=== PATIENT | male | born 1960 | race Two or more races ===

== ENCOUNTER 2025-02-07 06:12 | Inpatient (IN) | payer OTHER, MEDICAID ==
[~2025-02-07] VITALS: Ht 180.3 cm; Wt 67.2 kg
[2025-02-07] VITALS (11 sets, daily range): BP systolic 84–133; BP diastolic 66–114; PULSE 66–98; RESP 12–18; TEMP 97.6–97.8; O2SAT 95–100
[~2025-02-07 06:12] MED LIST: DOCU1CAP46 PO; GLIP5TAB21 PO; LOSA-533 PO; OMEP20TA PO
[2025-02-07] MEDS: ROCURONIUM 10MG/ML 10ML VIAL IV ONE (06:37)
[2025-02-07] MEDS: SUCCINYLCHOLINE CHLORIDE 20 MG/ML 10ML VIAL IV ONE (06:37)
[2025-02-07] MEDS ORDERED: fentaNYL CITRATE 100 MCG/2 ML VL ONE ×2 (06:44→07:21)
[2025-02-07] MEDS ORDERED: ONDANSETRON HCL 4 MG/2 ML VIAL ONE (06:44)
[2025-02-07] MEDS ORDERED: MIDAZOLAM HCL 2MG/2ML 2ml VIAL (1mg/ml) ONE (06:44)
[2025-02-07] MEDS ORDERED: SODIUM CHLORIDE LOCK 10 ML ONE (06:44)
[2025-02-07] MEDS ORDERED: PROPOFOL 10 MG/ML 20 ML IV ONE (06:44)
[2025-02-07] MEDS ORDERED: KETAMINE 50mg/ML 1ml syringe ONE (06:44)
[2025-02-07] MEDS ORDERED: LIDOCAINE 1% INJ PF 5ML AMP ONE (06:44)
[2025-02-07] MEDS: BUPIVACAINE 0.5% P/F INJ 10 ML VIAL ONE (07:07)
[2025-02-07] MEDS: ceFAZolin 2 GM/D5W50ml 50 ML IV ONE (07:50)
[2025-02-07] MEDS: VANCOMYCIN HCL 1000 MG VL ONE (08:23)
[2025-02-07] MEDS: BUPIVACAINE HCL 0.25% P/F 10 ML VIAL ONE (08:37)
[2025-02-07] MEDS: LIDOCAINE 1% HCL (LOCAL ANESTH.) INJ 20ML MDV ONE (08:38)
[2025-02-07] MEDS ORDERED: MORPHINE SULFATE 4 MG/ML SYR/VIAL IV PRN (09:00)
[2025-02-07] MEDS ORDERED: HYDROmorphone HCL 2 MG/ML VL/or syr IV PRN ×2 (09:00)
[2025-02-07] MEDS ORDERED: METOCLOPRAMIDE HCL 5MG/ml INJ 2ml VIAL IV PRN (09:00)
[2025-02-07] MEDS: ACCU-CHEK COMFORT CURVE STRIP VI ONE (09:00)
[2025-02-07] MEDS ORDERED: MORPHINE SULFATE INJ 2 MG/ml SYRG IV PRN ×2 (09:00→14:15)
--- NOTE | 2025-02-07 09:07 | DVHOP2 ---
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 These include but are not limited to complications of anesthesia, postoperative infection, incomplete relief of symptoms, recurrence of symptoms, damage to bl ood vessels, nerves and tendons, deep venous thrombosis, pulmonary embolism and possible need for repeat surgery in the future. Estimated Blood Loss: 200 mL Indications for Surgery: Right hand 4th 5th metatarsal osteomyelitis Name of Procedure Performed Right transmetatarsal amputation Procedure Details Procedure Details: Patient was identified in the preop hold area he was consented and preopped by myself he was brought back to the operating room placed the operating table in supine position. After adequate induction of anesthesia antibiotics and time- out. The right foot was prepped and draped in normal surgical fashion a standard transmetatarsal end incision was made Bovie cauterization was used to dissect down through each intermetatarsal space adequate bleeding was noted throughout each digital vessel was ligated. The attention was then placed through the posterior flap were this was done just proximal to the metatarsophalangeal joint. Again the tissue there was very healthy all the bones were circumferentially controlled. The 4th and 5th metatarsal bones were necrotic they were excised completely. The 1st through 3rd metatarsal bones were transected at the level of the mid foot. Once this was done the specimen was sent off for pathology. The wound was then irrigated out all bleeding was controlled vancomycin powder was then placed at the level of the transection and flap. The flap was then closed with a deep layer of 2-0 Vicryl sutures followed by a dermal layer of 2-0 Vicryl sutures followed by skin closure with jayne. A multilayer compression wrap dressing with ABDs Kerlix and Vinny wrap was then applied. Patient was taken to PACU in stable condition. Family was made aware of all findings. Condition Stable Disposition Still a Patient JUAN J BAEZ Jr., MD Feb 07, 2025 09:07
--- NOTE | 2025-02-07 14:09 | DVHHP2 ---
Review of Systems Allergies: Coded Allergies: NO KNOWN ALLERGIES (Unverified , 02/07/25) Medications Current Medications Medications Dose Ordered Sig/No Route Start Time Stop Time Status Last Admin Dose Admin Acetaminophen 650 mg Q6HP PRN PO 02/07/25 14:15 UNV Acetaminophen/ Hydrocodone Bitart 1 tab Q6HPRN PRN PO 02/07/25 14:15 UNV Morphine Sulfate 2 mg Q4HPRN PRN IV 02/07/25 14:15 UNV Exam Vital Signs Vital Signs Date Time Temp Pulse Resp B/P (MAP) Pulse Ox O2 Delivery O2 Flow Rate FiO2 02/07/25 13:38 80 16 127/73 (91) 98 02/07/25 09:20 Room Air 02/07/25 08:53 9.0 02/07/25 08:53 98.1 98.1 Labs/Xrays Labs Test 02/07/25 09:06 Range/Units POC Glucose 137 H 70-106 mg/dl SEPSIS Sepsis Screen Physician Orders Oxygen By Face Mask (02/07/25 08:59) Sustainability Director (02/07/25 08:59) Notify Anesth. For Changes: (02/07/25 08:59) Pulse Ox Assessment (02/07/25 08:59) Bear Hugger For Temp <94.5f (02/07/25 08:59) May Have Head Of Bed Up (02/07/25 08:59) Follow Iv With Surgeon Orders (02/07/25 08:59) Discharge To Room Per Criteria (02/07/25 08:59) Consistent Carb([facility])Diabetes (02/07/25 Dinner) Admit (02/07/25 14:04) Complete Blood Count (02/08/25 06:00) Comprehensive Metabolic Panel (02/08/25 06:00) Acetaminophen Tablet (Tylenol Tablet) (02/07/25 14:15) Hydrocodone-Acet 5/325mg Tab ([place] 5/32 (02/07/25 14:15) Morphine Sulfate Injection (02/07/25 14:15) Ondansetron Hcl (Zofran) (02/07/25 14:15) Glucose Blood (Accu-Chek Comfort Curve T (02/07/25 17:00) Mild Sliding Scale (02/07/25 17:00) Dextrose 50% Syringe (02/07/25 14:15) Hemoglobin A1c (02/08/25 06:00) Vital Signs Date Time Temp Pulse Resp B/P (MAP) Pulse Ox O2 Delivery O2 Flow Rate FiO2 02/07/25 13:38 80 16 127/73 (91) 98 02/07/25 12:38 79 14 110/66 (81) 98 02/07/25 11:38 75 12 107/66 (80) 97 02/07/25 10:38 73 14 128/70 (89) 97 02/07/25 10:08 76 18 121/75 (90) 97 02/07/25 09:38 81 11 115/74 (88) 98 02/07/25 09:23 75 14 127/67 (87) 98 02/07/25 09:20 Room Air 02/07/25 09:08 77 14 136/78 (97) 98 02/07/25 09:03 74 13 135/79 (97) 100 02/07/25 08:58 68 14 159/87 (111) 100 02/07/25 08:53 Mask 9.0 02/07/25 08:53 70 15 100 Mask 9.0 02/07/25 08:53 98.1 70 15 157/83 (107) 100 98.1 02/07/25 06:22 97.2 78 16 124/75 (91) 97 97.2 Medications Medications Dose Ordered Sig/No Route Start Time Stop Time Status Last Admin Dose Admin Bupivacaine HCl 20 ml STK-MED ONCE .ROUTE 02/07/25 06:58 02/07/25 06:55 DC 02/07/25 08:37 20 ML Cefazolin Sodium/ Dextrose 50 ml @ ud STK-MED ONCE IV 02/07/25 06:41 02/07/25 06:37 DC 02/07/25 07:50 Diagnostic Test (Pha) 1 strip ONCE ONCE 02/07/25 09:00 02/07/25 09:11 DC 02/07/25 09:00 1 STRIP Lidocaine HCl 20 ml STK-MED ONCE .ROUTE 02/07/25 06:59 02/07/25 06:56 DC 02/07/25 08:38 20 ML Assessment/Plan Assessment/Plan see dictated note Plan discussed with: Patient My Orders Orders - MARCELINO RIVAS MD Procedure Category Date Status Time Consistent DIET 02/07/25 Transmitted Carb(Ccho)Diabetes Dinner Admit ADMIT 02/07/25 Transmitted 14:04 Complete Blood Count LAB 02/08/25 Verified 06:00 Comprehensive LAB 02/08/25 Verified Metabolic Panel 06:00 Acetaminophen Tablet PHA 02/07/25 Transmitted (Tylenol Tablet) 14:15 Hydrocodone-Acet PHA 02/07/25 Transmitted 5/325mg Tab ([place] 14:15 Morphine Sulfate PHA 02/07/25 Transmitted Injection 14:15 Ondansetron Hcl PHA 02/07/25 Transmitted (Zofran) 14:15 Glucose Blood PHA 02/07/25 Transmitted (Accu-Chek Comfort 17:00 Mild Sliding Scale PHA 02/07/25 Transmitted 17:00 Dextrose 50% Syringe PHA 02/07/25 Transmitted 14:15 Hemoglobin A1c LAB 02/08/25 Verified 06:00 Date of Service: Feb 07, 2025 Billing Provider: MARCELINO RIVAS MD Common Visit Codes: [id number] INP/OBS CARE (HIGH) Secondary Visit Codes: [id number] CARE PLAN 30 MINUTES MARCELINO RIVAS MD Feb 07, 2025 14:09
[2025-02-07] MEDS ORDERED: DEXTROSE (50%) 50ML SYRG IV PRN (14:15)
[2025-02-07] MEDS ORDERED: ACETAMINOPHEN 325 MG TAB PO PRN (14:15)
[2025-02-07] MEDS ORDERED: HYDROcodone-ACET 5/325MG TAB PO PRN (14:15)
[2025-02-07] MEDS ORDERED: ONDANSETRON HCL 4 MG/2 ML VIAL IV PRN (14:15)
--- NOTE | 2025-02-07 14:21 | DVHHP ---
ADMIT DATE: 02/07/2025 HISTORY OF PRESENT ILLNESS: The patient is a 64-year-old gentleman who was admitted after he underwent surgery on the right foot for right fourth and fifth toe metatarsal osteomyelitis. The patient at this time denies any significant pain. No chest pain. No shortness of breath. No nausea or vomiting. REVIEW OF SYSTEMS: Review of rest systems otherwise currently negative. PAST MEDICAL HISTORY: Significant for diabetes and hypertension. MEDICATIONS: He takes glipizide, losartan, and omeprazole. ALLERGIES: No known drug allergies. SOCIAL HISTORY: Denies smoking or alcohol. Lives at home with family. FAMILY HISTORY: Negative. PHYSICAL EXAMINATION: GENERAL: The patient is awake and alert. VITAL SIGNS: Temperature of 98.1, pulse of 76 per minute, blood pressure 121/75. SHEENT: Unremarkable. There is no JVD. No pedal edema. LUNGS: Equal bilaterally. No added sounds. CARDIOVASCULAR: S1 and S2 is regular without murmurs. ABDOMEN: Soft. There is no organomegaly. NEUROLOGICAL: Nonfocal. MUSCULOSKELETAL: Right foot is currently in a dressing. ASSESSMENT AND PLAN: * Diabetes mellitus for which the patient will be placed on sliding-scale insulin. * Hypertension for which his blood pressure will be monitored. * Status post right fourth toe amputation for osteomyelitis. The patient will be placed on pain medications and followed up by Dr. Baez. ADVANCE CARE PLANNING: The patient is a full code-TIME SPENT: 18 minutes. MD AFSHAN Monte/DELL TID: [id number] RECEIPT: [id number] [facility]
[2025-02-07] MEDS: ACCU-CHEK COMFORT CURVE STRIP VI SCH (17:00)
[2025-02-07] MEDS: InsuLIN REG 1unit/0.01ml Soln (100units/ml) SC SCH (17:00)
[2025-02-08] VITALS (16 sets, daily range): BP systolic 114–143; BP diastolic 60–82; PULSE 66–99; RESP 16–18; TEMP 97.7–98.1; O2SAT 95–98
[2025-02-08] MEDS: PANTOPRAZOLE 40 MG TAB PO SCH (06:00)
[2025-02-08 06:08] LABS: Hemoglobin 13.4 g/dL (13.5-17.5); Mean Corpuscular Volume 97.7 fL (80.0-100.0); Nucleated Red Blood Cells % 0.1 %
[2025-02-08 06:11] LABS: Hematocrit 38.0 % (41.0-53.0); Mean Corpuscular Hemoglobin 34.5 pg (28.0-32.0)
[2025-02-08 06:34] LABS: Alanine Aminotransferase 15 U/L (7-40); Albumin 3.9 g/dL (3.2-4.8); Alkaline Phosphatase 50 U/L (46-116); Anion Gap 9 (5-15); BUN/Creatinine Ratio 11.8 (10.0-20.0); Calcium 9.2 mg/dL (8.7-10.4); Carbon Dioxide 28 mmol/L (20-31); Chloride 102 mmol/L (98-107); Potassium 3.7 mmol/L (3.5-5.1); Sodium 139 mmol/L (136-145); Total Protein 6.5 g/dL (5.7-8.2)
[2025-02-08 06:35] LABS: Bilirubin, Total 0.9 mg/dL (0.2-1.0); Blood Urea Nitrogen 6 mg/dL (9-23); Glucose 110 mg/dL (74-106)
[2025-02-08 07:26] LABS: Urine Protein, UAD Negative (Negative)
--- NOTE | 2025-02-08 11:08 | DVHDS2 ---
Discharge Summary Date of Admission Feb 07, 2025 at 14:04 Date of Discharge: Feb 08, 2025 Labs/Diagnostic Data: Laboratory Results Test 02/08/25 05:31 02/07/25 22:00 02/07/25 17:26 White Blood Count 7.4 10^3/uL (4.4-10.8) Red Blood Count 3.89 10^6/uL (4.5-5.90) Hemoglobin 13.4 g/dL (13.5-17.5) Hematocrit 38.0 % (41.0-53.0) Mean Corpuscular Volume 97.7 fL (80.0-100.0) Mean Corpuscular Hemoglobin 34.5 pg (28.0-32.0) Mean Corpuscular Hemoglobin Concent 35.3 g/dL (32.0-36.0) Red Cell Distribution Width 14.1 % (11.8-14.3) Platelet Count 230 10^3/uL (140-450) Mean Platelet Volume 6.5 fL (6.9-10.8) Neutrophils (%) (Auto) 64.7 % (37.0-80.0) Lymphocytes (%) (Auto) 25.3 % (10.0-50.0) Monocytes (%) (Auto) 8.3 % (0.0-12.0) Eosinophils (%) (Auto) 1.4 % (0.0-7.0) Basophils (%) (Auto) 0.3 % (0.0-2.0) Neutrophils # (Auto) 4.8 10 ^3/uL (1.6-8.6) Lymphocytes # (Auto) 1.9 10 ^3/uL (0.4-5.4) Monocytes # (Auto) 0.6 10 ^3/uL (0-1.3) Eosinophils # (Auto) 0.1 10 ^3/uL (0-0.8) Basophils # (Auto) 0 10 ^3/uL (0-0.2) Nucleated Red Blood Cells 0.1 % Sodium Level 139 mmol/L (136-145) Potassium Level 3.7 mmol/L (3.5-5.1) Chloride Level 102 mmol/L (98-107) Carbon Dioxide Level 28 mmol/L (20-31) Anion Gap 9 (5-15) Blood Urea Nitrogen 6 mg/dL (9-23) Creatinine 0.51 mg/dL (0.700-1.30) Glomerular Filtration Rate Calc 113 mL/min (>90) BUN/Creatinine Ratio 11.8 (10.0-20.0) Serum Glucose 110 mg/dL (74-106) Hemoglobin A1c 5.8 % A1C (<5.7) Calcium Level 9.2 mg/dL (8.7-10.4) Total Bilirubin 0.9 mg/dL (0.2-1.0) Aspartate Amino Transferase (AST) 16 U/L (13-40) Alanine Aminotransferase (ALT) 15 U/L (7-40) Alkaline Phosphatase 50 U/L (46-116) Total Protein 6.5 g/dL (5.7-8.2) Albumin 3.9 g/dL (3.2-4.8) Urine Color Light-yellow (Yellow) Urine Clarity Clear (Clear) Urine pH 6.0 (5.0-9.0) Urine Specific [place] 1.010 (1.001-1.035) Urine Protein Negative (Negative) Urine Ketones 1+ (Negative) Urine Blood Negative /uL (Negative) Urine Nitrite Negative (Negative) Urine Bilirubin Negative (Negative) Urine Urobilinogen Normal mg/dL (Negative) Urine Leukocyte Esterase Negative /uL (Negative) Urine RBC 1 /hpf (0 - 3) Urine Microscopic WBC 1 /HPF (0-3) Urine Squamous Epithelial Cells None seen /hpf (<5) Urine Bacteria None seen /hpf (None Seen) Urine Mucus Few (None Seen) Urine Glucose Normal mg/dL (Normal) POC Glucose 104 mg/dl (70-106) Other Laboratory Tests 02/08/25 05:31 Brief Hx & Hospital Course: see dictated note Condition at Discharge: Fair Final Diagnosis/Problems List right foot surgery Discharge Disposition: Home Discharge Instruct/Medications Diet: Consistent carbohydrate, Cardiac 2g Na,low cholest Activity: No Restrictions, As Tolerated Follow Up/Referral: fu with pcp/podiatry Medications: resume home meds script to pharmacy Scheduled Docusate Sodium (Docqlace), 100 MG PO DAILY, (Reported) Glipizide (Glipizide), 5 MG PO DAILY, (Reported) Losartan Potassium (Losartan Potassium), 25 MG PO PRN, (Reported) Omeprazole (Gnp Omeprazole), 20 MG PO DAILY, (Reported) Discharge Statement: "Patient was advised to return to the ER or call 911 if any headaches, dizziness, shortness of breath, chest pain, abdominal pain, bleeding, fevers, or worsening of medical condition. Patient was counseled about treatment plan, medications, possible side effects, patientverbalized understanding. All questions were answered to the best of my ability. This discharge took greater then 30 minutes in planning, reviewing documentation, counseling the patient, and discussing with other team members." ASSESSMENT ASSESSMENT Assessment right foot surgery Date of Service: Feb 08, 2025 Billing Provider: MARCELINO RIVAS MD Common Visit Codes: 36977-UZD/OBS DISCH DAY >30min MARCELINO RIVAS MD Feb 08, 2025 11:08
[2025-02-08] MEDS ORDERED: HYDR1TAB97 PO (11:09)
[2025-02-08] MEDS ORDERED: AMOX500T86 PO (11:09)
--- NOTE | 2025-02-08 11:20 | DVHDS ---
DATE OF DISCHARGE: 02/08/2025 HISTORY OF PRESENT ILLNESS: The patient is a 64-year-old gentleman who was admitted after he underwent right fourth and fifth toe amputation for osteomyelitis. He has history of diabetes and hypertension. HOSPITAL COURSE: The patient did well postoperatively. Hemoglobin has been stable. The patient's A1c was 5.8. He will now be discharged home to be on Augmentin 500 b.i.d. for 10 days along with [facility] p.r.n. for pain. He will follow up with his primary and with Dr. Baez. FINAL DIAGNOSES: * Diabetes mellitus. * Hypertension. * Status post right fourth and fifth toe amputation for osteomyelitis. Time spent in discharge planning and review of plan with the patient and family nursing was 37 minutes. MD AFSHAN Monte/SIERRA TID: [id number] RECEIPT: [id number]
== END 2025-02-08 17:45 | disposition home or self-care (01) | DRG 617 ==
LOC: SUR 06:12 → OVERFLOW 14:04 → WEST WING 15:15
PROVIDERS: ADMIT Internal Medicine; ATTEND Internal Medicine
PROC: 0Y6M0Z7 Detachment at Right Foot, Complete 4th Ray, Open Approach (ICD-10-PCS; 2025-02-07)
PROC: 0Y6M0Z9 Detachment at Right Foot, Partial 1st Ray, Open Approach (ICD-10-PCS; 2025-02-07)
PROC: 0Y6M0ZB Detachment at Right Foot, Partial 2nd Ray, Open Approach (ICD-10-PCS; 2025-02-07)
PROC: 0Y6M0ZC Detachment at Right Foot, Partial 3rd Ray, Open Approach (ICD-10-PCS; 2025-02-07)
PROC: 0Y6M0Z8 Detachment at Right Foot, Complete 5th Ray, Open Approach (ICD-10-PCS; principal; 2025-02-07 07:28)
DX: E11.69 Type 2 diabetes mellitus with other specified complication (principal); M86.8X7 Other osteomyelitis, ankle and foot; I10 Essential (primary) hypertension; Z79.899 Other long term (current) drug therapy
CPT/HCPCS: 36415; 80053; 81001; 82962; 83036; 85025; G0378; J0330; J1815; J2003; J2250; J2405; J2704; J3490

== ENCOUNTER 2025-04-16 17:47 | Inpatient (IN) | payer MEDICARE, MEDICAID ==
[~2025-04-16] VITALS: Ht 180.3 cm; Wt 59.8 kg
[~2025-04-16 17:47] MED LIST changes: +AMOX500T86 PO; +HYDR1TAB97 PO; +METF-370 PO
--- NOTE | 2025-04-16 18:16 | ECG ---
[facility] Test Date: 2025-04-16 Test Time: 18:00:14 Pat Name: JANE FLORES Department: Room: 0276 Gender: M Customer Data Technician: ZENA : 1960 Requested By: MIKAL DESOUZA Order Number: [id number] Reading MD: Jessee Fontanez Measurements Intervals Walker Rate: 80 P: 3 TN: 142 QRS: 26 QRSD: 93 T: -26 QT: 397 QTc: 458 Interpretive Statements Sinus rhythm Low voltage, extremity leads Electronically Signed On 04-19-2025 13:32:00 PST by Jessee Fontanez Please click the below link to view image of tracing.
[2025-04-16] MEDS: ONDANSETRON HCL 4 MG/2 ML VIAL IV ONE (18:45)
[2025-04-16] MEDS: MORPHINE SULFATE 4 MG/ML SYR/VIAL IV ONE (18:45)
[2025-04-16 19:14] LABS: Hematocrit 44.5 % (41.0-53.0); Hemoglobin 15.6 g/dL (13.5-17.5); Mean Corpuscular Hemoglobin 35.3 pg (28.0-32.0); Mean Corpuscular Volume 100.7 fL (80.0-100.0); Nucleated Red Blood Cells % 0.2 %
[2025-04-16 19:26] LABS: Alanine Aminotransferase 20 U/L (7-40); Albumin 4.1 g/dL (3.2-4.8); Alkaline Phosphatase 66 U/L (46-116); Anion Gap 8 (5-15); BUN/Creatinine Ratio 27.6 (10.0-20.0); Blood Urea Nitrogen 16 mg/dL (9-23); Calcium 9.7 mg/dL (8.7-10.4); Carbon Dioxide 31 mmol/L (20-31); Chloride 104 mmol/L (98-107); Lipase 27 U/L (12-53); Potassium 3.6 mmol/L (3.5-5.1); Sodium 143 mmol/L (136-145); Total Protein 7.3 g/dL (5.7-8.2)
[2025-04-16 19:27] LABS: Bilirubin, Total 1.0 mg/dL (0.2-1.0); Glucose 132 mg/dL (74-106)
--- NOTE | 2025-04-16 19:27 | ED.PDOC ---
GI ASSESSMENT HPI Comments 64-year-old male who came to ER for abdominal pain. Patient has history of hypertension and diabetes. The past few days patient has been having diffuse abdominal pain, associated with loss of appetite. Generalized weakness. Chief Complaint: Abdominal Pain Time Seen by MD: 19:26 Reviewed Notes: Nurses Notes Allergies: Coded Allergies: NO KNOWN ALLERGIES (Unverified , 02/07/25) Home Meds Active Scripts Hydrocodone-Acetaminophen (Hydrocodone/Acetaminophen 5-325 mg) 1 Tab Tab, 1 TAB PO TIDP PRN for 6 Days, #18 TAB Prov:MARCELINO RIVAS MD 02/08/25 Amoxicillin & Pot Clavulanate (Augmentin) 500 Mg Tab, 1 TAB PO BID for 10 Days, #20 TAB Prov:MARCELINO RIVAS MD 02/08/25 Reported Medications Glipizide (Glipizide) 5 Mg Tab, 5 MG PO DAILY, TAB 02/04/25 Omeprazole (Gnp Omeprazole) 20 Mg Tab, 20 MG PO DAILY, TAB 02/04/25 Losartan Potassium (Losartan Potassium) 25 Mg Tab, 25 MG PO PRN, TAB 02/04/25 Docusate Sodium (DOCQLACE) 100 Mg Cap, 100 MG PO DAILY, CAP 02/04/25 Information Source: Patient, Spouse Mode of Arrival: Wheelchair Timing: Days Duration: Since onset Past Medical History PAST MEDICAL HISTORY: DM, HTN Surgical History (Other): toe amputation Family History Family History: Reviewed,noncontributory to illness Social History Smoker: Non-Smoker Alcohol: Denies ETOH Use Drugs: Denies Drug Use Lives In: Home Constitutional: denies: chills, diaphoresis, fatigue, fever, malaise, sweats, weakness, others EENTM: denies: blurred vision, double vision, ear bleeding, ear discharge, ear drainage, ear pain, ear ringing, eye pain, eye redness, hearing loss, mouth pain, mouth swelling, nasal discharge, nose bleeding, nose congestion, nose pain, photophobia, tearing, throat pain, throat swelling, voice changes, others Respiratory: denies: cough, hemoptysis, orthopnea, SOB at rest, shortness of breath, SOB with excertion, stridor, wheezing, others Cardiovascular: denies: chest pain, dizzy spells, diaphoresis, Dyspnea on exertion, edema, irregular heart beat, left arm pain, lightheadedness, palpitations, PND, syncope, others Gastrointestinal: reports: abdominal pain, poor appetite; denies: abdomen distended, blood streaked bowels, constipated, diarrhea, dysphagia, difficulty swallowing, hematemesis, melena, nausea, poor fluid intake, rectal bleeding, rectal pain, vomiting, others Genitourinary: denies: burning, dysuria, flank pain, frequency, hematuria, incontinence, penile discharge, penile sore, pain, testicle pain, testicle sw elling, urgency, others Neurological: denies: dizziness, fainting, headache, left sided numbness, left sided weakness, numbness, paresthesia, pre-existing deficit, right sided numbness, right sided weakness, seizure, speech problems, tingling, tremors, weakness, others Musculoskeletal: denies: back pain, gout, joint pain, joint swelling, muscle pain, muscle stiffness, neck pain, others Integumetry: denies: bruises, change in color, change in hair/nails, dryness, laceration, lesions, lumps, rash, wounds, others Allergic/Immunocompromised: denies: Difficulty Healing, Frequent Infections, Hives, Itching, others Hematologic/Lymphatic: denies: anemia, blood clots, easy bleeding, easy bruising, swollen glands, others Endocrine: denies: excessive hunger, excessive sweating, excessive thirst, excessive urination, flushing, intolerance to cold, intolerance to heat, unexplained weight gain, unexplained weight loss, others Psychiatric: denies: anxiety, bipolar disorder, depression, hopeless, panic disorder, schizophrenia, sleepless, suicidal, others Physical Exam General Appearance: No Apparent Distress, Normal HEENT: Normal ENT Inspection, Pharynx Normal, TMs Normal Neck: Full Range of Motion, Non-Tender, Normal, Normal Inspection Respiratory: Chest Non-Tender, Lungs Clear, No Accessory Muscle Use, No Respiratory Distress, Normal Breath Sounds Cardiovascular: No Edema, No JVD, No Murmur, No Gallop, Normal Peripheral Pulses, Regular Rate/Rhythm Breast Exam: Deferred Gastrointestinal: No Organomegaly, Non Tender, No Pulsatile Mass, Normal Bowel Sounds, Soft Genitalia: Deferred Pelvic: Deferred Rectal: Deferred Extremities: No calf tenderness, Normal capillary refill, Normal inspection, Normal range of motion, Non-tender, No pedal edema Musculoskeletal : Apperance: Normal Neurologic: Alert, coffee roaster II-XII nml as Tested, No Motor Deficits, Normal Affect, Normal Mood, No Sensory Deficits Cerebellar Function: Normal Reflexes: Normal Skin: Dry, Normal Color, Warm Lymphatic: No Adenopathy Was a procedure done? Was a procedure done?: No GI differential Dx Differential Diagnosis: Diverticular disease, Gastritis/PUD, Gastroenteritis, Pancreatitis, Dehydration, Diabetes/ DKA X-Ray, Labs, Meds, VS Vital Signs Date Time Temp Pulse Resp B/P (MAP) Pulse Ox O2 Delivery O2 Flow Rate FiO2 04/16/25 21:16 83 18 100 Room Air* 0 21 04/16/25 20:53 83 18 137/72 (93) 99 04/16/25 18:45 83 18 137/72 04/16/25 18:00 80 04/16/25 17:50 97.5 91 18 119/81 96 97.5 Lab Test 04/16/25 18:57 Range/Units White Blood Count 7.3 4.4-10.8 10^3/uL Red Blood Count 4.41 L 4.5-5.90 10^6/uL Hemoglobin 15.6 13.5-17.5 g/dL Hematocrit 44.5 41.0-53.0 % Mean Corpuscular Volume 100.7 H 80.0-100.0 fL Mean Corpuscular Hemoglobin 35.3 H 28.0-32.0 pg Mean Corpuscular Hemoglobin Concent 35.0 32.0-36.0 g/dL Red Cell Distribution Width 13.3 11.8-14.3 % Platelet Count 310 140-450 10^3/uL Mean Platelet Volume 6.8 L 6.9-10.8 fL Neutrophils (%) (Auto) 62.2 37.0-80.0 % Lymphocytes (%) (Auto) 29.6 10.0-50.0 % Monocytes (%) (Auto) 6.4 0.0-12.0 % Eosinophils (%) (Auto) 1.3 0.0-7.0 % Basophils (%) (Auto) 0.5 0.0-2.0 % Neutrophils # (Auto) 4.5 1.6-8.6 10 ^3/uL Lymphocytes # (Auto) 2.2 0.4-5.4 10 ^3/uL Monocytes # (Auto) 0.5 0-1.3 10 ^3/uL Eosinophils # (Auto) 0.1 0-0.8 10 ^3/uL Basophils # (Auto) 0 0-0.2 10 ^3/uL Nucleated Red Blood Cells 0.2 % Sodium Level 143 136-145 mmol/L Potassium Level 3.6 3.5-5.1 mmol/L Chloride Level 104 98-107 mmol/L Carbon Dioxide Level 31 20-31 mmol/L Anion Gap 8 5-15 Blood Urea Nitrogen 16 9-23 mg/dL Creatinine 0.58 L 0.700-1.30 mg/dL Glomerular Filtration Rate Calc 108 >90 mL/min BUN/Creatinine Ratio 27.6 H 10.0-20.0 Serum Glucose 132 H 74-106 mg/dL Calcium Level 9.7 8.7-10.4 mg/dL Total Bilirubin 1.0 0.2-1.0 mg/dL Aspartate Amino Transferase (AST) 24 13-40 U/L Alanine Aminotransferase (ALT) 20 7-40 U/L Alkaline Phosphatase 66 46-116 U/L Total Protein 7.3 5.7-8.2 g/dL Albumin 4.1 3.2-4.8 g/dL Lipase 27 12-53 U/L Current Medications Medications (Trade) Dose Ordered Sig/No Route Start Time Stop Time Status Last Admin Ondansetron HCl (Zofran) 4 mg ONCE ONCE IV 04/16/25 18:45 04/16/25 18:46 DC 04/16/25 18:45 Sodium Chloride 1,000 ml @ 1,000 mls/hr Q1H ONCE IVB 04/16/25 18:45 04/16/25 19:44 DC 04/16/25 20:03 Morphine Sulfate 4 mg ONCE ONCE IV 04/16/25 18:45 04/16/25 18:46 DC 04/16/25 18:45 Time of 1ST Reevaluation: 19:25 Reevaluation 1ST: Unchanged Patient Education/Counseling: Diagnosis, Treatment Family Education/Counseling: Diagnosis, Treatment SEPSIS Sepsis Screen Date sepsis recognized/suspect: Apr 16, 2025 Time Sepsis recognized/suspect: 1751 Recent Procedure: No On Antibiotic Therapy: No Respiratory Rate >20: No Heart Rate >90: Yes Temp<36 C (96.8 F) or >38.3 C: No SBP <90 or MAP <65 mmHG: No New Acute Mental Status Change: No Is the patient on CPAP, BIPAP,: No Physician Orders Urinalysis (04/16/25 18:40) Ct Ab Pel With Iv Con Only (04/16/25 18:40) Vital Signs Date Time Temp Pulse Resp B/P (MAP) Pulse Ox O2 Delivery O2 Flow Rate FiO2 04/16/25 21:16 83 18 100 Room Air* 0 21 04/16/25 20:53 83 18 137/72 (93) 99 04/16/25 18:45 83 18 137/72 04/16/25 18:00 80 04/16/25 17:50 97.5 91 18 119/81 96 97.5 Laboratory Tests Test 04/16/25 18:57 White Blood Count 7.3 10^3/uL (4.4-10.8) Medications Medications Dose Ordered Sig/No Route Start Time Stop Time Status Last Admin Dose Admin Morphine Sulfate 4 mg ONCE ONCE IV 04/16/25 18:45 04/16/25 18:46 DC 04/16/25 18:45 Ondansetron HCl 4 mg ONCE ONCE IV 04/16/25 18:45 04/16/25 18:46 DC 04/16/25 18:45 Sodium Chloride 1,000 ml @ 1,000 mls/hr Q1H ONCE IVB 04/16/25 18:45 04/16/25 19:44 DC 04/16/25 20:03 Departure 1 Departure Time of Disposition: 23:11 Impression: Primary Impression: Intractable abdominal pain Additional Impression: Stercoral colitis Disposition: ADMITTED INPATIENT Admit to: Med Surg Condition: Guarded Comments 64-year-old male with lower abdominal pain. Lab and CT findings reviewed. CT scan is a little bit worrisome for possible stercoral colitis. Patient's still has pain on re-evaluation. Patient will need to be admitted for supportive care and further workup. Critical Care Note Critical Care Time?: Yes (35 min-critical care time only) Critical care comment: Total critical care time: Approximately 36 minutes Due to a high probability of clinically significant, life threatening deterioration, the patient required my highest level of preparedness to intervene emergently and I personally spent this critical care time directly and personally managing the patient. This critical care time included obtaining a history; examining the patient; pulse oximetry; ordering and review of studies; arranging urgent treatment with development of a management plan; evaluation of patient's response to treatment; frequent reassessment; and, discussions with other providers. This critical care time was performed to assess and manage the high probability of imminent, life-threatening deterioration that could result in multi-organ failure. It was exclusive of separately billable procedures and treating other patients. Stability Stability form required: No Heart Score Heart Score: Heart Score Response (Comments) Value History N/A 0 EKG N/A 0 Age N/A 0 Risk Factors N/A 0 Troponin N/A 0 Total 0 I personally scribed for MIKAL DESOUZA MD ([email or web address]) on 04/16/25 at 19:27. Electronically submitted by Indio Caldwell ([email or web address]). MIKAL DESOUZA MD Apr 16, 2025 19:27
[2025-04-16] MEDS: IOHEXOL 300 MG/ML 100ML BOTTLE IJ ONE (19:51)
[2025-04-16] MEDS: SODIUM CHLORIDE 0.9% 1,000 ML IVB ONE (20:03)
[2025-04-16 21:16] VITALS: PULSE 83; RESP 18; O2SAT 100
--- NOTE | 2025-04-16 21:36 | DVH ---
Exam: CT CT AB PEL WITH IV CON ONLY History: abd pain Comparison Study: None TECHNIQUE: Multidetector CT of the abdomen and pelvis with IV contrast. Axial, coronal and sagittal m ultiplanar reformats were obtained from the axial data set by the technologist. Radiation Dose Information: CT Dose: CTDI volume is 6.98 mGy. Dose-length product is 367.98 mGy*cm FINDINGS: Bibasilar atelectasis. Partially visualized heart is normal in size. Trace pericardial effusion. 0.8 cm hypodense right hepatic lobe lesion that is too small to characterize. Otherwise, liver, sple en and adrenal glands unremarkable. Gallbladder is moderately distended and demonstrates mild wall th ickening. Otherwise, unremarkable. 1.8 x 1.6 cm soft tissue density lesion adjacent to/of the pancreatic tail. Kidneys, ureters,and mildly distended urinary bladder are unremarkable. Prostate measures 3.3 x 5 cm . Mild gastric wall thickening. Mild wall Thickening of proximal small bowel loops. The remainder of t he small bowel loops unremarkable. Appendix is not definitely visualized. Without visualization of t he appendix, can not exclude acute appendicitis. Moderate to large amount of fecal material within the colon with rectal fecal impaction measuring up to 7.4 x 7.2 cm. Segmental wall thickening of the ascending colon which may be from inadequate disten tion. Distal rectal wall thickening with mesorectal fat stranding. No evidence of intraperitoneal free air or free fluid. Mild mesenteric edema. No evidence of aortic aneurysm or dissection. Mild atherosclerotic calcification of the aorta and bi lateral iliacs. No significant lymphadenopathy. Mild body wall edema. No evidence of acute osseous abnormalities. Mild chronic appearing loss of supe rior vertebral body height of L3. IMPRESSION: Mild gastroenteritis. Moderate to large amount of fecal material within the colon with rectal fecal impaction and stercoral proctitis. Segmental wall thickening over the ascending colon which may be from inadequate distention with mild Colitis not excluded. Mild nonspecific wall thickening of the gallbladder. No CT evidence of cholelithiasis acute cholecyst itis. Right upper quadrant ultrasound may be considered for further evaluation. Enlarged prostate. Recommend correlation with PSA. Mild body wall edema.
[2025-04-17] VITALS (9 sets, daily range): BP systolic 118–136; BP diastolic 75–84; PULSE 65–86; RESP 17–19; TEMP 97.1–98.2; O2SAT 94–99
[2025-04-17] MEDS ORDERED: NITROGLYCERIN 0.4 MG SL TAB SL PRN (01:00)
[2025-04-17] MEDS ORDERED: MORPHINE SULFATE INJ 2 MG/ml SYRG IV PRN ×2 (01:00)
[2025-04-17] MEDS ORDERED: ONDANSETRON HCL 4 MG/2 ML VIAL IV PRN (01:00)
[2025-04-17] MEDS ORDERED: DEXTROSE (50%) 50ML SYRG IV PRN (01:00)
[2025-04-17] MEDS: SODIUM CHLORIDE 0.9% 1,000 ML IV SCH (01:27)
[2025-04-17] MEDS: ACETAMINOPHEN 325 MG TAB PO PRN (01:29)
--- NOTE | 2025-04-17 01:59 | DVHHP2 ---
RAFIQ MERAZ TECHNICIAN TRAINEE 04/17/25 0159: History of Present Illness Reason for Visit: Abdominal pain History of Present Illness 64 year-old male with past medical history of DM, hypertension, partial right foot amputation presents with complaint of diffuse abdominal pain times three weeks worsening over the previous days. Patient endorses pain on the left lower quadrant. 8/10, constant. State is also having difficulty swallowing and eating. Last BM in the morning very small. Patient's family member endorses that the patient has had limited mobility since having his partial right foot amputation in January. Is also not drinking very much water because he is afraid to spill urine When he is using the urinal. During the emergency department evaluation CT of the abdomen/pelvis with contrast impression reads mild gastroenteritis. Mo derate to large amount of fecal matter within the colon with rectal fecal impaction, and stercoral proctitis. Segmental wall thickening over the ascending colon which may be from inadequate distention with mild colitis, not excluded. Mild nonspecific wall thickening of the gallbladder. No CT evidence of cholelithiasis acute cholecystitis. At this time, the patient denies fevers, ch ills, shortness of breath, chest pain, palpitations, vomiting, dysuria, urinary retention. Cardiovascular: HTN Endocrine: Diabetes Review of Systems Constitutional: No: Fever, Chills, Sweats, Weakness, Malaise, Other Eyes: No: Pain, Vision change, Conjunctivae inflammation, Eyelid inflammation, Other, Redness ENT: No: Ear pain, Ear discharge, Nose pain, Nose discharge, Nose congestion, Mouth pain, Mouth swelling, Throat pain, Throat swelling, Other Respiratory: No: Cough, Dry, Shortness of breath, SOB with excertion, Wheezing, Hemoptysis, Pleuritic Pain, Sputum, Wheezing, Other Cardiovascular: No: Chest Pain, Palpitations, Orthopnea, Paroxysmal Noc. Dyspnea, Edema, Lt Headedness, Other Gastrointestinal: Nausea, Abdominal Pain, Constipation; No: Vomiting, Diarrhea, Melena, Hematochezia, Other Genitourinary: No Dysuria, No Frequency, No Incontinence, No Hematuria, No Retention, No Other Musculoskeletal: No: other, neck pain, shoulder pain, arm pain, back pain, hand pain, leg pain, foot pain Skin: No: Rash, Lesions, Jaundice, Bruising, Other Neurological: No: Weakness, Numbness, Incoordination, Change in speech, Confusion, Seizures, Other Allergies: Coded Allergies: NO KNOWN ALLERGIES (Unverified , 02/07/25) Medications Current Medications Medications Dose Ordered Sig/No Route Start Time Stop Time Status Last Admin Dose Admin Sodium Chloride 1,000 ml @ 100 mls/hr Q10H IV 04/17/25 01:00 04/17/25 01:27 100 MLS/HR Docusate Sodium 100 mg BIDPRN PRN PO 04/17/25 01:00 Acetaminophen 650 mg Q6HP PRN PO 04/17/25 01:00 04/17/25 01:29 650 MG Ondansetron HCl 4 mg Q4HP PRN IV 04/17/25 01:00 Morphine Sulfate 2 mg Q4HPRN PRN IV 04/17/25 01:00 Enoxaparin Sodium 40 mg DAILY SC 04/17/25 10:00 Nitroglycerin 0.4 mg Q5MINP PRN SL 04/17/25 01:00 Morphine Sulfate 2 mg Q30M PRN IV 04/17/25 01:00 Diagnostic Test (Pha) 1 strip ACHS 04/17/25 07:00 Insulin Human Regular ACHS SC 04/17/25 07:00 Dextrose 50 ml UD PRN IV 04/17/25 01:00 Pantoprazole Sodium 40 mg DAILY IV 04/17/25 10:00 Exam Vital Signs Vital Signs Date Time Temp Pulse Resp B/P (MAP) Pulse Ox O2 Delivery O2 Flow Rate FiO2 04/17/25 01:24 98.1 72 18 138/30 (66) 97 98.1 04/17/25 01:24 Room Air* 0 21 General Appearance: Alert, Oriented X3, Cooperative, moderate distress HEENT: Atraumatic, PERRLA, EOMI Respiratory: Clear to auscultation, Normal air movement Cardiovascular: Regular rate, Normal S1, Normal S2 Abdominal: Other (Lower abdomen tender to palpation. Hypoactive bowel sounds. ) Extremities: No edema, Normal pulses, Other (Partial right foot amputation ) Skin: No rashes Neuro: Normal speech, Strength at 5/5 X4 ext Psych/Mental Status: Mental status NL, Mood NL Labs/Xrays Labs Test 04/16/25 18:57 Range/Units White Blood Count 7.3 4.4-10.8 10^3/uL Red Blood Count 4.41 L 4.5-5.90 10^6/uL Hemoglobin 15.6 13.5-17.5 g/dL Hematocrit 44.5 41.0-53.0 % Mean Corpuscular Volume 100.7 H 80.0-100.0 fL Mean Corpuscular Hemoglobin 35.3 H 28.0-32.0 pg Mean Corpuscular Hemoglobin Concent 35.0 32.0-36.0 g/dL Red Cell Distribution Width 13.3 11.8-14.3 % Platelet Count 310 140-450 10^3/uL Mean Platelet Volume 6.8 L 6.9-10.8 fL Neutrophils (%) (Auto) 62.2 37.0-80.0 % Lymphocytes (%) (Auto) 29.6 10.0-50.0 % Monocytes (%) (Auto) 6.4 0.0-12.0 % Eosinophils (%) (Auto) 1.3 0.0-7.0 % Basophils (%) (Auto) 0.5 0.0-2.0 % Neutrophils # (Auto) 4.5 1.6-8.6 10 ^3/uL Lymphocytes # (Auto) 2.2 0.4-5.4 10 ^3/uL Monocytes # (Auto) 0.5 0-1.3 10 ^3/uL Eosinophils # (Auto) 0.1 0-0.8 10 ^3/uL Basophils # (Auto) 0 0-0.2 10 ^3/uL Nucleated Red Blood Cells 0.2 % Sodium Level 143 136-145 mmol/L Potassium Level 3.6 3.5-5.1 mmol/L Chloride Level 104 98-107 mmol/L Carbon Dioxide Level 31 20-31 mmol/L Anion Gap 8 5-15 Blood Urea Nitrogen 16 9-23 mg/dL Creatinine 0.58 L 0.700-1.30 mg/dL Glomerular Filtration Rate Calc 108 >90 mL/min BUN/Creatinine Ratio 27.6 H 10.0-20.0 Serum Glucose 132 H 74-106 mg/dL Calcium Level 9.7 8.7-10.4 mg/dL Total Bilirubin 1.0 0.2-1.0 mg/dL Aspartate Amino Transferase (AST) 24 13-40 U/L Alanine Aminotransferase (ALT) 20 7-40 U/L Alkaline Phosphatase 66 46-116 U/L Total Protein 7.3 5.7-8.2 g/dL Albumin 4.1 3.2-4.8 g/dL Lipase 27 12-53 U/L SEPSIS Sepsis Screen Date sepsis recognized/suspect: Apr 17, 2025 Time Sepsis recognized/suspect: 125 Recent Procedure: No On Antibiotic Therapy: No Respiratory Rate >20: No Heart Rate >90: No Temp<36 C (96.8 F) or >38.3 C: No SBP <90 or MAP <65 mmHG: No New Acute Mental Status Change: No Is the patient on CPAP, BIPAP,: No Physician Orders Urinalysis (04/16/25 18:40) Ct Ab Pel With Iv Con Only (04/16/25 18:40) Admit (04/17/25 00:49) Code Status (04/17/25 00:49) Vital Signs .PER UNIT PROTOCOL (04/17/25 00:49) Review Orders With Adm.Md (04/17/25 00:49) Encourage Activity As Tolerate (04/17/25 00:49) Sodium Chloride 0.9% (04/17/25 01:00) Oxygen By Face Mask (04/17/25 00:49) Docusate Sodium Capsule (Colace Capsule) (04/17/25 01:00) Acetaminophen Tablet (Tylenol Tablet) (04/17/25 01:00) Notify Md Of Changes From Base (04/17/25 00:49) Advance Directive (04/17/25 00:49) Basic Metabolic Panel (04/17/25 05:00) Basic Metabolic Panel (04/18/25 05:00) Basic Metabolic Panel (04/19/25 05:00) Complete Blood Count (04/17/25 05:00) Complete Blood Count (04/18/25 05:00) Complete Blood Count (04/19/25 05:00) Patient Condition (04/17/25 00:49) Allergies (04/17/25 00:49) Ondansetron Hcl (Zofran) (04/17/25 01:00) Morphine Sulfate Injection (04/17/25 01:00) Enoxaparin Sodium (Lovenox) (04/17/25 10:00) Sequential Compression Device (04/17/25 ) Nitroglycerin Sublingual (Ntrostat Subli (04/17/25 01:00) Morphine Sulfate Injection (04/17/25 01:00) Stat Ekg For Chest Pain (04/17/25 00:49) Notify Md Of Changes From Base (04/17/25 00:49) [employer] Linux Engineer For 24 Hours (04/17/25 00:49) Emergency Dysrhythmia Protocol (04/17/25 00:49) Rhythm Strips Once Every Shift (04/17/25 00:49) Oxygen By Nasal Cannula (04/17/25 00:49) Soap Dipak Enema (04/17/25 06:00) Soap Dipak Enema (04/17/25 12:00) Soap Dipak Enema (04/17/25 18:00) Soap Dipak Enema (04/18/25 00:00) * Gi Dvh Sourcing Consultant (04/17/25 00:49) Glucose Blood (Accu-Chek Comfort Curve T (04/17/25 07:00) Insulin R (Human) (Insulin R) (04/17/25 07:00) Dextrose 50% Syringe (04/17/25 01:00) Clear Liq Diet (04/17/25 Breakfast) Pantoprazole (Protonix) (04/17/25 10:00) Vital Signs Date Time Temp Pulse Resp B/P (MAP) Pulse Ox O2 Delivery O2 Flow Rate FiO2 04/17/25 01:24 98.1 72 18 138/30 (66) 97 98.1 04/17/25 01:24 72 18 97 Room Air* 0 21 04/17/25 00:03 97.4 77 16 124/81 (95) 97 97.4 04/16/25 21:16 83 18 100 Room Air* 0 21 04/16/25 20:53 83 18 137/72 (93) 99 04/16/25 18:45 83 18 137/72 04/16/25 18:00 80 04/16/25 17:50 97.5 91 18 119/81 96 97.5 Laboratory Tests Test 04/16/25 18:57 White Blood Count 7.3 10^3/uL (4.4-10.8) Medications Medications Dose Ordered Sig/No Route Start Time Stop Time Status Last Admin Dose Admin Acetaminophen 650 mg Q6HP PRN PO 04/17/25 01:00 04/17/25 01:29 650 MG Morphine Sulfate 4 mg ONCE ONCE IV 04/16/25 18:45 04/16/25 18:46 DC 04/16/25 18:45 4 MG Ondansetron HCl 4 mg ONCE ONCE IV 04/16/25 18:45 04/16/25 18:46 DC 04/16/25 18:45 4 MG Sodium Chloride 1,000 ml @ 100 mls/hr Q10H IV 04/17/25 01:00 04/17/25 01:27 100 MLS/HR Sodium Chloride 1,000 ml @ 1,000 mls/hr Q1H ONCE IVB 04/16/25 18:45 04/16/25 19:44 DC 04/16/25 20:03 1,000 MLS/HR Assessment/Plan Assessment/Plan Stercoral proctitis / colitis Large fecal impaction DM Hypertension S/p partial right foot amputation Hx enlarged prostate Plan Admit, medical surgical Consult supervisor grove. Soap suds enema. Clear liquid diet. IVF. Blood glucose check with regular insulin sliding scale coverage. Continue home medications. GI ppx protonix / DVT ppx lovenox Plan discussed with: Patient, Spouse My Orders Orders - RAFIQ MERAZ NP Procedure Category Date Status Time Admit ADMIT 04/17/25 Transmitted 00:49 Code Status CODE 04/17/25 Transmitted 00:49 Vital Signs SELWYN 04/17/25 In Process 00:49 Review Orders With SELWYN 04/17/25 In Process Adm. 00:49 Encourage Activity As SELWYN 04/17/25 In Process Tolerate 00:49 Sodium Chloride 0.9% PHA 04/17/25 In Process 01:00 Oxygen By Face Mask RT 04/17/25 Transmitted 00:49 Docusate Sodium PHA 04/17/25 In Process Capsule (Colace 01:00 Acetaminophen Tablet PHA 04/17/25 In Process (Tylenol Tablet) 01:00 Notify Of Changes SELWYN 04/17/25 In Process From Base 00:49 Advance Directive SELWYN 04/17/25 In Process 00:49 Basic Metabolic Panel LAB 04/17/25 Logged 05:00 Basic Metabolic Panel LAB 04/18/25 Verified 05:00 Basic Metabolic Panel LAB 04/19/25 Verified 05:00 Complete Blood Count LAB 04/17/25 Logged 05:00 Complete Blood Count LAB 04/18/25 Verified 05:00 Complete Blood Count LAB 04/19/25 Verified 05:00 Patient Condition ORDERS 04/17/25 Transmitted 00:49 Allergies SELWYN 04/17/25 In Process 00:49 Ondansetron Hcl PHA 04/17/25 In Process (Zofran) 01:00 Morphine Sulfate PHA 04/17/25 In Process Injection 01:00 Enoxaparin Sodium PHA 04/17/25 In Process (Lovenox) 10:00 Sequential SELWYN 04/17/25 In Process Compression Device Nitroglycerin PHA 04/17/25 In Process Sublingual (Ntrostat 01:00 Morphine Sulfate PHA 04/17/25 In Process Injection 01:00 Stat Ekg For Chest SELWYN 04/17/25 In Process Pain 00:49 Notify Of Changes SELWYN 04/17/25 In Process From Base 00:49 [employer] Linux Engineer For SELWYN 04/17/25 In Process 24 Hours 00:49 Emergency Dysrhythmia SELWYN 04/17/25 In Process Protocol 00:49 Rhythm Strips Once SELWYN 04/17/25 In Process Every Shift 00:49 Oxygen By Nasal RT 04/17/25 Transmitted Cannula 00:49 Soap Dipak Enema ORDERS 04/17/25 Transmitted 06:00 Soap Dipak Enema ORDERS 04/17/25 Transmitted 12:00 Soap Dipak Enema ORDERS 04/17/25 Transmitted 18:00 Soap Dipak Enema ORDERS 04/18/25 Transmitted 00:00 * Gi D[employer] Sourcing Consultant CONS 04/17/25 Transmitted 00:49 Glucose Blood PHA 04/17/25 In Process (Accu-Chek Comfort 07:00 Insulin R (Human) PHA 04/17/25 In Process (Insulin R) 07:00 Dextrose 50% Syringe PHA 04/17/25 In Process 01:00 Clear Liq Diet DIET 04/17/25 Transmitted Breakfast Pantoprazole PHA 04/17/25 In Process (Protonix) 10:00 Date of Service: Apr 17, 2025 Billing Provider: VY XIE MD Common Visit Codes: NOT BILLABLE VY XIE MD 04/17/25 1255: Review of Systems Allergies: Coded Allergies: NO KNOWN ALLERGIES (Unverified , 02/07/25) Additional Comments Additional Comments Additional Comments Patient's chart is reviewed. Patient is seen evaluated and admitted by nurse practitioner. I agree with his evaluation, documentation, assessment and care plan as outlined. Patient is seen and evaluated by me along with the nurse and coupling machine operator at bedside earlier today and updated the patient's/his regarding his care plan. RAFIQ MERAZ NP Apr 17, 2025 01:59 VY XIE MD Apr 17, 2025 12:55
[2025-04-17] MEDS ORDERED: TRAZ-228 PO (03:05)
[2025-04-17] MEDS ORDERED: IBUP-1454 PO (03:05)
[2025-04-17] MEDS: InsuLIN REG 1unit/0.01ml Soln (100units/ml) SC SCH (06:01)
[2025-04-17] MEDS: ACCU-CHEK COMFORT CURVE STRIP VI SCH (06:02)
[2025-04-17 06:28] LABS: Hemoglobin 13.8 g/dL (13.5-17.5)
[2025-04-17 06:30] LABS: Anion Gap 11 (5-15); Carbon Dioxide 28 mmol/L (20-31); Chloride 105 mmol/L (98-107); Hematocrit 39.2 % (41.0-53.0); Mean Corpuscular Hemoglobin 35.1 pg (28.0-32.0); Mean Corpuscular Volume 100.1 fL (80.0-100.0); Nucleated Red Blood Cells % 0.1 %; Sodium 144 mmol/L (136-145)
[2025-04-17 06:31] LABS: Calcium 9.1 mg/dL (8.7-10.4)
[2025-04-17 06:36] LABS: BUN/Creatinine Ratio 34.1 (10.0-20.0); Blood Urea Nitrogen 15 mg/dL (9-23); Glucose 97 mg/dL (74-106); Potassium 3.4 mmol/L (3.5-5.1)
[2025-04-17] MEDS: PANTOPRAZOLE 40 MG/10 ML VIAL INJ IV SCH (10:13)
[2025-04-17] MEDS: ENOXAPARIN SOD 40 MG/0.4 ML SYRINGE SC SCH (10:14)
[2025-04-17] MEDS: DOCUSATE SOD 100 MG CAP PO PRN (10:14)
[2025-04-17] MEDS: LOSARTAN POTASSIUM 25 MG TAB PO SCH (10:14)
[2025-04-17 11:05] LABS: Urine Protein, UAD TRACE (Negative)
--- NOTE | 2025-04-17 13:49 | DVHINCON2 ---
Date of service: Apr 17, 2025 History of Present Illness Per HPI - "64 year-old male with past medical history of DM, hypertension, partial right foot amputation presents with complaint of diffuse abdominal pain times three weeks worsening over the previous days. Patient endorses pain on the left lower quadrant. 8/10, constant. State is also having difficulty swallowing and eating. Last BM in the morning very small. Patient's family member endorses that the patient has had limited mobility since having his partial right foot amputation in January. Is also not drinking very much water because he is afraid to spill urine When he is using the urinal. During the emergency department evaluation CT of the abdomen/pelvis with contrast impression reads mild gastroenteritis. Moderate to large amount of fecal matter within the colon with rectal fecal impaction, and stercoral proctitis. Segmental wall thickening over the ascending colon which may be from inadequate distention with mild colitis, not excluded. Mild nonspecific wall thickening of the gallbladder. No CT evidence of cholelithiasis acute cholecystitis. At this time, the patient denies fevers, chills, shortness of breath, chest pain, palpitations, vomiting, dysuria, urinary retention." Family bedside. He c/o abd pain, denies diarrhea/N/V/constipation. Never had EGD/colonoscopy. Past Medical History Reviewed Past Surgical History Reviewed Allergies: Coded Allergies: NO KNOWN ALLERGIES (Unverified , 02/07/25) Home Meds Reported Medications Ibuprofen (Ibuprofen) 600 Mg Tab, 1 TAB PO TID, #90 TAB 04/17/25 Trazodone Hcl (Trazodone Hcl) 100 Mg Tab, 1 TAB PO QPM, #30 TAB 1 Refill 04/17/25 Glipizide (Glipizide) 5 Mg Tab, 5 MG PO DAILY, TAB 02/04/25 Omeprazole (Gnp Omeprazole) 20 Mg Tab, 20 MG PO DAILY, TAB 02/04/25 Losartan Potassium (Losartan Potassium) 25 Mg Tab, 25 MG PO PRN, TAB 02/04/25 Current Medications Current Medications Medications (Trade) Dose Ordered Sig/No Route PRN Reason Start Time Stop Time Status Last Admin Sodium Chloride 1,000 ml @ 100 mls/hr Q10H IV 04/17/25 01:00 04/17/25 10:14 Docusate Sodium (Colace Capsule) 100 mg BIDPRN PRN PO FOR CONSTIPATION 04/17/25 01:00 04/17/25 10:14 Acetaminophen (Tylenol Tablet) 650 mg Q6HP PRN PO PAIN SCALE 1-3 OR TEMP>100.4 04/17/25 01:00 04/17/25 01:29 Ondansetron HCl (Zofran) 4 mg Q4HP PRN IV NAUSEA / VOMITING 04/17/25 01:00 Morphine Sulfate 2 mg Q4HPRN PRN IV SEVERE PAIN (7-10 PAIN SCALE) 04/17/25 01:00 Enoxaparin Sodium (Lovenox) 40 mg DAILY SC 04/17/25 10:00 04/17/25 10:14 Nitroglycerin (Ntrostat Sublingual) 0.4 mg Q5MINP PRN SL FOR CHEST PAIN 04/17/25 01:00 Morphine Sulfate 2 mg Q30M PRN IV FOR CHEST PAIN 04/17/25 01:00 Diagnostic Test (Pha) (Accu-Chek Comfort Curve T) 1 strip ACHS 04/17/25 07:00 04/17/25 11:53 Insulin Human Regular (InsuLIN R) ACHS SC 04/17/25 07:00 Dextrose 50 ml UD PRN IV Blood Sugar LESS THAN 60 04/17/25 01:00 Pantoprazole Sodium (Protonix) 40 mg DAILY IV 04/17/25 10:00 04/17/25 10:13 Losartan Potassium (Cozaar Tablet) 25 mg DAILY PO 04/17/25 10:00 04/17/25 10:14 Review of Systems 14 point ROS negative except mentioned above Vital Signs Vital Signs Date Time Temp Pulse Resp B/P (MAP) Pulse Ox O2 Delivery O2 Flow Rate FiO2 04/17/25 13:00 97.4 65 17 126/75 (92) 98 97.4 04/17/25 08:00 Room Air* 0 21 Physical Exam PE: in no distress CVS: S1S2+ Lungs: clear Abdomen: soft, nondistended, tender, BS+ Labs/Diagnostic Data Labs Test 04/17/25 11:40 04/17/25 10:30 04/17/25 04:34 04/16/25 18:57 Range/Units POC Glucose 120 H 70-106 mg/dl Urine Color Yellow Yellow Urine Clarity Clear Clear Urine pH 6.0 5.0-9.0 Urine Specific [place] > 1.050 H 1.001-1.035 Urine Protein Trace H Negative Urine Ketones 2+ H Negative Urine Blood Negative Negative /uL Urine Nitrite Negative Negative Urine Bilirubin Negative Negative Urine Urobilinogen 2 H Negative mg/dL Urine Leukocyte Esterase Negative Negative /uL Urine RBC 2 0 - 3 /hpf Urine Microscopic WBC 1 0-3 /HPF Urine Squamous Epithelial Cells Few <5 /hpf Urine Bacteria Few H None Seen /hpf Urine Mucus Few None Seen Urine Glucose Normal Normal mg/dL White Blood Count 6.5 4.4-10.8 10^3/uL Red Blood Count 3.91 L 4.5-5.90 10^6/uL Hemoglobin 13.8 13.5-17.5 g/dL Hematocrit 39.2 #L 41.0-53.0 % Mean Corpuscular Volume 100.1 H 80.0-100.0 fL Mean Corpuscular Hemoglobin 35.1 H 28.0-32.0 pg Mean Corpuscular Hemoglobin Concent 35.1 32.0-36.0 g/dL Red Cell Distribution Width 13.3 11.8-14.3 % Platelet Count 241 140-450 10^3/uL Mean Platelet Volume 6.9 6.9-10.8 fL Neutrophils (%) (Auto) 63.8 37.0-80.0 % Lymphocytes (%) (Auto) 27.9 10.0-50.0 % Monocytes (%) (Auto) 6.4 0.0-12.0 % Eosinophils (%) (Auto) 1.4 0.0-7.0 % Basophils (%) (Auto) 0.5 0.0-2.0 % Neutrophils # (Auto) 4.2 1.6-8.6 10 ^3/uL Lymphocytes # (Auto) 1.8 0.4-5.4 10 ^3/uL Monocytes # (Auto) 0.4 0-1.3 10 ^3/uL Eosinophils # (Auto) 0.1 0-0.8 10 ^3/uL Basophils # (Auto) 0 0-0.2 10 ^3/uL Nucleated Red Blood Cells 0.1 % Sodium Level 144 136-145 mmol/L Potassium Level 3.4 L 3.5-5.1 mmol/L Chloride Level 105 98-107 mmol/L Carbon Dioxide Level 28 20-31 mmol/L Anion Gap 11 5-15 Blood Urea Nitrogen 15 9-23 mg/dL Creatinine 0.44 L 0.700-1.30 mg/dL Glomerular Filtration Rate Calc 118 >90 mL/min BUN/Creatinine Ratio 34.1 H 10.0-20.0 Serum Glucose 97 74-106 mg/dL Calcium Level 9.1 8.7-10.4 mg/dL Thyroid Stimulating Hormone (TSH) 1.09 0.55-4.78 uIU/mL Total Bilirubin 1.0 0.2-1.0 mg/dL Aspartate Amino Transferase (AST) 24 13-40 U/L Alanine Aminotransferase (ALT) 20 7-40 U/L Alkaline Phosphatase 66 46-116 U/L Total Protein 7.3 5.7-8.2 g/dL Albumin 4.1 3.2-4.8 g/dL Lipase 27 12-53 U/L Assessment #Abdominal pain #AC wall thickening on CTAP #?Constipation -Bowel regimen recommended. Monitor clinical improvement -Cont supportive care and diet as tolerated Colonoscopy as out pt for further evaluation of CTAp findings Care plan discussed with pt and family bedside in detail Thank you for the consult. Plan discussed with: Patient, Other EULOGIO BASSETT MD Apr 17, 2025 13:49
[2025-04-18] VITALS (8 sets, daily range): BP systolic 127–152; BP diastolic 80–90; PULSE 69–105; RESP 16–18; TEMP 97.4–98.7; O2SAT 97–100
[2025-04-18 06:52] LABS: Hematocrit 42.6 % (41.0-53.0); Hemoglobin 14.9 g/dL (13.5-17.5); Mean Corpuscular Hemoglobin 35.3 pg (28.0-32.0); Mean Corpuscular Volume 100.8 fL (80.0-100.0); Nucleated Red Blood Cells % 0.3 %
[2025-04-18 07:13] LABS: Anion Gap 11 (5-15); Carbon Dioxide 29 mmol/L (20-31); Chloride 105 mmol/L (98-107); Sodium 145 mmol/L (136-145)
[2025-04-18 07:14] LABS: Calcium 8.9 mg/dL (8.7-10.4)
[2025-04-18 07:15] LABS: Potassium 3.2 mmol/L (3.5-5.1)
[2025-04-18 07:19] LABS: BUN/Creatinine Ratio 13.0 (10.0-20.0); Blood Urea Nitrogen 6 mg/dL (9-23); Glucose 76 mg/dL (74-106)
--- NOTE | 2025-04-18 12:57 | DVH ---
Date: 04/18/2025 12:12 PM Examination: XY ABDOMEN 2 VIEW History: fecal impaction follow up Comparison: CT CT AB PEL WITH IV CON ONLY on DOS: 04/16/25, CT ABD PELVIS WO on DOS: 01/05/25, US AORTA on DOS: 12/01/24 TECHNIQUE: Frontal views of the abdomen was obtained. FINDINGS: Bowel gas pattern is unremarkable. Large stool burden. The lung bases are unremarkable. No acute osseous abnormality identified. IMPRESSION: Nonobstructive bowel gas pattern. Large stool burden.
--- NOTE | 2025-04-18 13:18 | DVHPN2 ---
Progress Note - Dictate Date Seen: Apr 18, 2025 Medical Necessity Reason Pt with a Central, PICC or Fol: No Subjective Patient had multiple large bowel movements overnight. Today he refused to take enemas due to having significant bowel movements. Discussed with the patient and his along with the nurse and attendant child activity at bedside. Denies any abdominal discomfort or any other complaints. vital signs Vital Sign Date Time Temp Pulse Resp B/P (MAP) Pulse Ox O2 Delivery O2 Flow Rate FiO2 04/18/25 12:37 98.7 78 18 138/84 (102) 98 98.7 04/18/25 08:00 Room Air* 0 21 Total Intake and Output 04/17/25 04/17/25 04/18/25 15:00 23:00 07:00 Intake Total 500 ml 511 ml Balance 500 ml 511 ml medications Current Medications Medications Dose Ordered Sig/On Route Start Time Stop Time Status Last Admin Dose Admin Docusate Sodium 100 mg BIDPRN PRN PO 04/17/25 01:00 04/17/25 10:14 100 MG Acetaminophen 650 mg Q6HP PRN PO 04/17/25 01:00 04/17/25 01:29 650 MG Ondansetron HCl 4 mg Q4HP PRN IV 04/17/25 01:00 Morphine Sulfate 2 mg Q4HPRN PRN IV 04/17/25 01:00 Enoxaparin Sodium 40 mg DAILY SC 04/17/25 10:00 04/18/25 09:26 40 MG Nitroglycerin 0.4 mg Q5MINP PRN SL 04/17/25 01:00 Morphine Sulfate 2 mg Q30M PRN IV 04/17/25 01:00 Diagnostic Test (Pha) 1 strip ACHS 04/17/25 07:00 04/18/25 11:51 1 STRIP Insulin Human Regular ACHS SC 04/17/25 07:00 04/17/25 21:47 2 UNITS Dextrose 50 ml UD PRN IV 04/17/25 01:00 Losartan Potassium 25 mg DAILY PO 04/17/25 10:00 04/18/25 09:27 25 MG Lactulose 30 ml Q6HR PO 04/18/25 18:00 UNV objective Comfortable in bed without distress. Alert awake oriented to place and person. HEENT neck supple no JVD. Heart regular rate rhythm S1-S2. Lungs fair air movement without rales wheezes. Abdomen soft nontender positive bowel sounds. Extremities no edema laboratory and microbiology Laboratory Tests 04/18/25 05:00 Test 04/18/25 05:00 Range/Units Serum Glucose 76 74-106 mg/dL Assessment/Plan Patient has had multiple bowel movements through soapsuds enemas. Therefore given his reluctant to take further enemas I will start him on oral laxative with the lactulose. We will replace his low potassium. I will get a abdominal x-ray to further evaluate extent of constipation. Discussed with the patient and his through attendant child activity at length regarding importance of hydration and laxatives at home as well as avoiding narcotics as much as possible. Patient and family also educated regarding outpatient colonoscopy after one month. Apparently patient is scheduled to undergo colonoscopy as a screening but Mr. Due to having his toe amputations surgery few weeks ago. Patient's verbalized understanding of his hospital diagnosis and care plan as outlined. Problems(with codes): (1) Fecal impaction of rectum (2) Intractable abdominal pain (3) Stercoral colitis Dietary Evaluation Review Comments: 1) Refer to ST for swallow study 2) Advance to 60g CCHO 2g Na diet when medically feasible 3) Encourage optimal PO intake 4) Follow-up with gastroenterology 5) Continue to monitor I&O, labs, and skin integrity Expected Outcomes/Goals: 1) appetite and labs to improve 2) diet to advance 3) f/u in 3-5 days Plan discussed with: Patient, Spouse, Other VY XIE MD Apr 18, 2025 13:18
[2025-04-18] MEDS: POTASSIUM EFFERVESENT TAB 25 MEQ PO ONE (14:51)
[2025-04-18] MEDS: LACTULOSE 20Gm/30ML SOLN PO ONE (14:53)
--- NOTE | 2025-04-18 16:20 | DVHPN2 ---
Progress Note Date Seen: Apr 18, 2025 Resident Creating Document: JHMatJSRINIVAS Hemphill RESIDENT Medical Necessity Reason Pt with a Central, PICC or Fol: No Subjective Review of Systems Patient seen and examined at the bedside Complains of [id number] diffuse abdominal pain Tolerating liquid diet well Initial abdominopelvic CT showed [id number] amount of fecal material with rectal fecal impaction with a mild ascending colitis Multiple bowel movements reported Vitals stable Objective vital signs Vital Sign Date Time Temp Pulse Resp B/P (MAP) Pulse Ox O2 Delivery O2 Flow Rate FiO2 04/18/25 12:37 98.7 78 18 138/84 (102) 98 98.7 04/18/25 08:00 Room Air* 0 21 Total Intake and Output 04/17/25 04/17/25 04/18/25 15:00 23:00 07:00 Intake Total 500 ml 511 ml Balance 500 ml 511 ml medications Current Medications Medications Dose Ordered Sig/No Route Start Time Stop Time Status Last Admin Dose Admin Docusate Sodium 100 mg BIDPRN PRN PO 04/17/25 01:00 04/17/25 10:14 100 MG Acetaminophen 650 mg Q6HP PRN PO 04/17/25 01:00 04/17/25 01:29 650 MG Ondansetron HCl 4 mg Q4HP PRN IV 04/17/25 01:00 Morphine Sulfate 2 mg Q4HPRN PRN IV 04/17/25 01:00 Enoxaparin Sodium 40 mg DAILY SC 04/17/25 10:00 04/18/25 09:26 40 MG Nitroglycerin 0.4 mg Q5MINP PRN SL 04/17/25 01:00 Morphine Sulfate 2 mg Q30M PRN IV 04/17/25 01:00 Diagnostic Test (Pha) 1 strip ACHS 04/17/25 07:00 04/18/25 11:51 1 STRIP Insulin Human Regular ACHS SC 04/17/25 07:00 04/17/25 21:47 2 UNITS Dextrose 50 ml UD PRN IV 04/17/25 01:00 Losartan Potassium 25 mg DAILY PO 04/17/25 10:00 04/18/25 09:27 25 MG Lactulose 30 ml Q6HR PO 04/18/25 18:00 Trazodone HCl 100 mg HS PO 04/18/25 22:00 Examination Gen - no pallor, no scleral icterus Skin - Patients skin is warm and dry. HEENT - normocephalic, atraumatic, dry mucous membranes. Neck - supple, no lymphadenopathy Pulmonary - B/L equal breath sounds cardiovascular - regular S1,S2 heard GI - soft abdomen with mild diffuse tenderness to palpation. Bowel sounds normoactive. Neurological - Patient is alert and oriented x4 and is following commands laboratory and microbiology Laboratory Tests 04/18/25 05:00 Test 04/18/25 05:00 Range/Units Serum Glucose 76 74-106 mg/dL Problem List/Assessment/Plan Problem List/Assessment/Plan Severe constipation Fecal impaction Stercoral proctitis Mild gastroenteritis Plan - continue on bowel regimen with lactulose, senna - tolerating liquid diet well, advanced as tolerated - gallbladder ultrasound ordered to rule out the possibility of cholecystitis - patient may benefit from an elective colonoscopy since he has never had in the past Plan discussed with Dr. Lainez Plan discussed with: Patient, Spouse, Other (MIKA Valencia) Dietary Evaluation Review Comments: 1) Refer to ST for swallow study 2) Advance to 60g CCHO 2g Na diet when medically feasible 3) Encourage optimal PO intake 4) Follow-up with gastroenterology 5) Continue to monitor I&O, labs, and skin integrity Expected Outcomes/Goals: 1) appetite and labs to improve 2) diet to advance 3) f/u in 3-5 days SRINIVAS DUONG RESIDENT Apr 18, 2025 16:20
[2025-04-18] MEDS: LACTULOSE 20Gm/30ML SOLN PO SCH (18:00)
--- NOTE | 2025-04-18 19:55 | DVH ---
INDICATION: abd pain, CT findings of GB wall thickening TECHNIQUE: Multiple real-time sonographic images were obtained of the right upper quadrant. COMPARISON: XY ABDOMEN 2 VIEW on DOS: 04/18/25, CT CT AB PEL WITH IV CON ONLY on DOS: 04/16/25, CT ABD PELVIS WO on DOS: 01/05/25, US AORTA on DOS: 12/01/24 FINDINGS: The liver demonstrates homogeneous echotexture without focal mass lesions. The liver measures 15.1 cm . There is no intrahepatic or extrahepatic ductal dilatation. The common duct measures 0.3 cm and is wi thin normal limits. Cholelithiasis. The gallbladder wall measures 0.1 cm and is within normal limits. The right kidney measures 9.9 cm. The right kidney is normal in contour, size, and shape. The echogen icity is normal. There is no hydronephrosis. The pancreas is not well visualized due to overlying bowel gas. IMPRESSION: Cholelithiasis.
[2025-04-18] MEDS: SENNA 8.6 MG TAB PO SCH (21:07)
[2025-04-19] VITALS (7 sets, daily range): BP systolic 98–128; BP diastolic 64–79; PULSE 76–82; RESP 17–19; TEMP 36.6; O2SAT 93–99
[2025-04-19 06:29] LABS: Nucleated Red Blood Cells % 0.1 %
[2025-04-19 06:33] LABS: Hematocrit 40.2 % (41.0-53.0); Hemoglobin 14.4 g/dL (13.5-17.5); Mean Corpuscular Hemoglobin 35.7 pg (28.0-32.0); Mean Corpuscular Volume 99.8 fL (80.0-100.0)
[2025-04-19 06:43] LABS: Anion Gap 13 (5-15); Carbon Dioxide 27 mmol/L (20-31); Chloride 102 mmol/L (98-107); Sodium 142 mmol/L (136-145)
[2025-04-19 06:45] LABS: Calcium 9.1 mg/dL (8.7-10.4)
[2025-04-19 06:49] LABS: Glucose 75 mg/dL (74-106)
[2025-04-19 06:53] LABS: BUN/Creatinine Ratio 9.1 (10.0-20.0); Blood Urea Nitrogen < 5 mg/dL (9-23); Potassium 3.4 mmol/L (3.5-5.1)
[2025-04-19] MEDS ORDERED: LACT10SO3 PO (14:48)
[2025-04-19] MEDS ORDERED: LOSA-533 PO (14:48)
[2025-04-19] MEDS ORDERED: OMEP20TA PO (14:48)
[2025-04-19] MEDS ORDERED: SENN17.23 PO (14:48)
--- NOTE | 2025-04-19 17:29 | DVHPN2 ---
Progress Note Date Seen: Apr 19, 2025 Resident Creating Document: SRINIVAS DUONG Medical Necessity Reason Pt with a Central, PICC or Fol: No Subjective Review of Systems Patient's vitally stable Denies any abdominal pain Reported to have bowel movement regular Objective vital signs Vital Sign Date Time Temp Pulse Resp B/P (MAP) Pulse Ox O2 Delivery O2 Flow Rate FiO2 04/19/25 16:56 97.9 81 18 128/68 (88) 97 97.9 04/19/25 08:00 Room Air* 0 21 Total Intake and Output 04/18/25 04/18/25 04/19/25 15:00 23:00 07:00 Intake Total 325 ml 300 ml Balance 325 ml 300 ml Examination Gen - no pallor, no scleral icterus Skin - Patients skin is warm and dry. HEENT - normocephalic, atraumatic, dry mucous membranes. Neck - supple, no lymphadenopathy Pulmonary - B/L equal breath sounds cardiovascular - regular S1,S2 heard GI - soft abdomen with mild diffuse tenderness to palpation. Bowel sounds normoactive. Neurological - Patient is alert and oriented x4 and is following commands laboratory and microbiology Laboratory Tests 04/19/25 05:40 Test 04/19/25 05:40 Range/Units Serum Glucose 75 74-106 mg/dL Problem List/Assessment/Plan Problem List/Assessment/Plan Severe constipation Fecal impaction Stercoral proctitis Mild gastroenteritis Plan - continue on bowel regimen with lactulose, senna on discharge - tolerating diet well - gallbladder ultrasound showed cholelithiasis , no evidence of cholecystitis - patient may benefit from an elective colonoscopy as an outpatient Follow up in the GI outpatient clinic in 4-6 weeks Plan discussed with Dr. Lainez Plan discussed with: Patient, Other (RN Annie) Dietary Evaluation Review Comments: 1) Refer to ST for swallow study 2) Advance to 60g CCHO 2g Na diet when medically feasible 3) Encourage optimal PO intake 4) Follow-up with gastroenterology 5) Continue to monitor I&O, labs, and skin integrity Expected Outcomes/Goals: 1) appetite and labs to improve 2) diet to advance 3) f/u in 3-5 days SRINIVAS DUONG RESIDENT Apr 19, 2025 17:29
--- NOTE | 2025-04-27 13:06 | DVHDS2 ---
Discharge Summary Date of Admission Apr 17, 2025 at 00:49 Date of Discharge: Apr 19, 2025 Labs/Diagnostic Data: Laboratory Results Test 04/19/25 12:00 04/19/25 05:40 04/17/25 10:30 04/17/25 04:34 POC Glucose 138 mg/dl (70-106) White Blood Count 6.8 10^3/uL (4.4-10.8) Red Blood Count 4.03 10^6/uL (4.5-5.90) Hemoglobin 14.4 g/dL (13.5-17.5) Hematocrit 40.2 % (41.0-53.0) Mean Corpuscular Volume 99.8 fL (80.0-100.0) Mean Corpuscular Hemoglobin 35.7 pg (28.0-32.0) Mean Corpuscular Hemoglobin Concent 35.8 g/dL (32.0-36.0) Red Cell Distribution Width 13.0 % (11.8-14.3) Platelet Count 263 10^3/uL (140-450) Mean Platelet Volume 7.0 fL (6.9-10.8) Neutrophils (%) (Auto) 65.1 % (37.0-80.0) Lymphocytes (%) (Auto) 28.0 % (10.0-50.0) Monocytes (%) (Auto) 5.4 % (0.0-12.0) Eosinophils (%) (Auto) 0.9 % (0.0-7.0) Basophils (%) (Auto) 0.6 % (0.0-2.0) Neutrophils # (Auto) 4.4 10 ^3/uL (1.6-8.6) Lymphocytes # (Auto) 1.9 10 ^3/uL (0.4-5.4) Monocytes # (Auto) 0.4 10 ^3/uL (0-1.3) Eosinophils # (Auto) 0.1 10 ^3/uL (0-0.8) Basophils # (Auto) 0 10 ^3/uL (0-0.2) Nucleated Red Blood Cells 0.1 % Sodium Level 142 mmol/L (136-145) Potassium Level 3.4 mmol/L (3.5-5.1) Chloride Level 102 mmol/L (98-107) Carbon Dioxide Level 27 mmol/L (20-31) Anion Gap 13 (5-15) Blood Urea Nitrogen < 5 mg/dL (9-23) Creatinine 0.55 mg/dL (0.700-1.30) Glomerular Filtration Rate Calc 110 mL/min (>90) BUN/Creatinine Ratio 9.1 (10.0-20.0) Serum Glucose 75 mg/dL (74-106) Calcium Level 9.1 mg/dL (8.7-10.4) Urine Color Yellow (Yellow) Urine Clarity Clear (Clear) Urine pH 6.0 (5.0-9.0) Urine Specific [place] > 1.050 (1.001-1.035) Urine Protein Trace (Negative) Urine Ketones 2+ (Negative) Urine Blood Negative /uL (Negative) Urine Nitrite Negative (Negative) Urine Bilirubin Negative (Negative) Urine Urobilinogen 2 mg/dL (Negative) Urine Leukocyte Esterase Negative /uL (Negative) Urine RBC 2 /hpf (0 - 3) Urine Microscopic WBC 1 /HPF (0-3) Urine Squamous Epithelial Cells Few /hpf (<5) Urine Bacteria Few /hpf (None Seen) Urine Mucus Few (None Seen) Urine Glucose Normal mg/dL (Normal) Thyroid Stimulating Hormone (TSH) 1.09 uIU/mL (0.55-4.78) Free Thyroxine (T4) Calculated 1.60 ng/dL (0.89-1.76) Test 04/16/25 18:57 Total Bilirubin 1.0 mg/dL (0.2-1.0) Aspartate Amino Transferase (AST) 24 U/L (13-40) Alanine Aminotransferase (ALT) 20 U/L (7-40) Alkaline Phosphatase 66 U/L (46-116) Total Protein 7.3 g/dL (5.7-8.2) Albumin 4.1 g/dL (3.2-4.8) Lipase 27 U/L (12-53) Other Laboratory Tests 04/19/25 05:40 Brief Hx & Hospital Course: 64 year-old male with past medical history of DM, hypertension, partial right foot amputation presents with complaint of diffuse abdominal pain times three weeks worsening over the previous days. Patient endorses pain on the left lower quadrant. 8/10, constant. State is also having difficulty swallowing and eating. Last BM in the morning very small. Patient's family member endorses that the patient has had limited mobility since having his partial right foot amputation in January. Is also not drinking very much water because he is afraid to spill urine When he is using the urinal. During the emergency department evaluation CT of the abdomen/pelvis with contrast impression reads mild gastroenteritis. Moderate to large amount of fecal matter within the colon with rectal fecal impaction, and stercoral proctitis. Segmental wall thickening over the ascending colon which may be from inadequate distention with mild colitis, not excluded. Mild nonspecific wall thickening of the gallbladder. No CT evidence of cholelithiasis acute cholecystitis. At this time, the patient denies fevers, chills, shortness of breath, chest pain, palpitations, vomiting, dysuria, urinary retention. CT scan showed stercoral colitis with fecal impaction. Ultrasound of the gallbladder showed cholelithiasis He is admitted and evaluated by community outreach specialist. He received multiple enemas as well as oral laxatives including lactulose. Patient had good large bowel movements. His thyroid panel is normal. After having multiple bowel movements patient is tolerating his diet. Feeling better. Abdominal discomfort is improved. Patient and family counseled on multiple occasions through implementation specialist payroll regarding increasing oral hydration to minimize constipation as well as to stay on laxatives. There also advised to have outpatient follow up in 4-6 weeks for elective colonoscopy. Given he is feeling better and symptoms improved it is felt he could be safely discharged home with outpatient follow up as outlined. Patient and his verbalized understanding of his hospital diagnosis, treatment he received, discharge medications, discharge instructions and agree with the follow up plan of care as outlined. Operations or Procedures CT of the abdomen/pelvis IMPRESSION: Mild gastroenteritis. Moderate to large amount of fecal material within the colon with rectal fecal impaction and stercoral proctitis. Segmental wall thickening over the ascending colon which may be from inadequate distention with mild Colitis not excluded. Mild nonspecific wall thickening of the gallbladder. No CT evidence of cholelithiasis acute cholecystitis. Right upper quadrant ultrasound may be considered for further evaluation. Enlarged prostate. Recommend correlation with PSA. Mild body wall edema. Condition at Discharge: Stable Final Diagnosis/Problems List fecal impaction, failure to thrive Discharge Disposition: Home Discharge Instruct/Medications Diet: Consistent carbohydrate, Cardiac 2g Na,low cholest Activity: No Restrictions, As Tolerated Follow Up/Referral: PCP after 10 days follow up fecal impaction and poor appetite Medications: take as prescribed and home meds per dc list Scheduled Lactulose (Lactulose), 20 GM PO BID Losartan Potassium (Losartan Potassium), 25 MG PO DAILY Metformin Hydrochloride (Metformin Hcl), 1 TAB PO BID, (Reported) Omeprazole (Gnp Omeprazole), 20 MG PO DAILY Senna (Senokot Extra Strength), 17.2 MG PO QPM Trazodone Hcl (Trazodone Hcl), 1 TAB PO QPM, (Reported) Discharge Statement: "Patient was advised to return to the ER or call 911 if any headaches, dizziness, shortness of breath, chest pain, abdominal pain, bleeding, fevers, or worsening of medical condition. Patient was counseled about treatment plan, medications, possible side effects, patientverbalized understanding. All questions were answered to the best of my ability. This discharge took greater then 30 minutes in planning, reviewing documentation, counseling the patient, and discussing with other team members." ASSESSMENT ASSESSMENT Assessment fecal impaction, failure to thrive VY XIE MD Apr 27, 2025 13:06
== END 2025-04-19 17:05 | disposition home or self-care (01) | DRG 389 ==
LOC: ER 17:49 → OVERFLOW 04-17 00:49 → WEST WING 04-17 02:45
PROVIDERS: ADMIT Nurse Practitioner Family; ATTEND Nurse Practitioner Family
DX: K56.41 Fecal impaction (principal); Z68.1 Body mass index [BMI] 19.9 or less, adult; R62.7 Adult failure to thrive; E11.9 Type 2 diabetes mellitus without complications; I10 Essential (primary) hypertension; K52.89 Other specified noninfective gastroenteritis and colitis; K62.89 Other specified diseases of anus and rectum; N40.0 Benign prostatic hyperplasia without lower urinary tract symptoms; Z89.431 Acquired absence of right foot
CPT/HCPCS: 36415; 74021; 74177; 76705; 80048; 80053; 81001; 82962; 83690; 84439; 84443; 85025; 93005; 97163; 99291; G0378; J1815; J2405; J2470